=== PATIENT | male | born 1985 | race African-American/Black ===

== ENCOUNTER 2021-01-23 04:43 | Emergency (ER) | payer OTHER ==
[~2021-01-23] VITALS: Ht 182.9 cm; Wt 74.8 kg
[2021-01-23] MEDS ORDERED: NORCO 10-325 T1 EACH PO (05:12)
[2021-01-23] MEDS ORDERED: CLEOCIN HCL300 MG PO (05:12)
[2021-01-23 05:25] VITALS: BP 131/103
== END 2021-01-23 05:27 | disposition home or self-care (01) ==
LOC: ER 04:43
DX: K04.7 Periapical abscess without sinus (principal); F12.90 Cannabis use, unspecified, uncomplicated; Z98.890 Other specified postprocedural states